=== PATIENT | male | born 1955 | race Caucasian/White ===

== ENCOUNTER 2018-03-12 09:39 | Outpatient (CLI) | payer BC ==
--- NOTE | 2018-03-12 11:14 | ULT ---
LEFT BREAST ULTRASOUND: Date: 03/12/18 HISTORY: 63-year-old male with history of palpable finding in the subareolar aspect of the left breast. FINDINGS: There are some flame-shaped hypoechogenicity changes in the subareolar region of the left breast, as well as some minimal asymmetric appearing glandular tissue. No evidence for focal mass or architectur al distortion. Mammographic findings and breast ultrasound findings are consistent with that of asymmetric left-side d gynecomastia without evidence for focal malignancy. Continued follow-up physical examination is recommended. If there is any new palpable finding or sign ificant change in the palpable findings in the left breast, follow-up left-sided diagnostic mammogram and left breast ultrasound examination is recommended. IMPRESSION: BIRADS 2: Benign Finding(s) Evidence for gynecomastia. If the patient develops a new focal palpable finding or change in the palp able findings, follow-up additional imaging at that point in time, including left unilateral diagnost ic mammogram and left breast ultrasound, would be recommended. POS: OFF
== END 2018-03-12 09:40 | disposition home or self-care (01) ==
LOC: BICMAMMO 09:39
PROVIDERS: ATTEND Surgery
DX: N63.20 Unspecified lump in the left breast, unspecified quadrant (principal); N62 Hypertrophy of breast
CPT/HCPCS: 77066; G0279

== ENCOUNTER 2021-07-23 13:24 | Outpatient (CLI) | payer MEDICARE, BC ==
[2021-07-24 00:50] LABS: SARS-CoV-2 PCR by NAA Not Detected (NotDetected)
== END 2021-07-23 13:25 | disposition home or self-care (01) ==
LOC: LABBT 13:24
PROVIDERS: ATTEND Surgery
DX: Z01.812 Encounter for preprocedural laboratory examination (principal); C86.5 Angioimmunoblastic T-cell lymphoma; Z20.822 Contact with and (suspected) exposure to COVID-19
CPT/HCPCS: U0003; U0005

== ENCOUNTER 2021-08-04 12:06 | Outpatient (CLI) | payer MEDICARE, BC ==
[2021-08-04 22:06] LABS: SARS-CoV-2 PCR by NAA Not Detected (NotDetected)
== END 2021-08-04 12:07 | disposition home or self-care (01) ==
LOC: LABBT 12:06
PROVIDERS: ATTEND Surgery
DX: C86.5 Angioimmunoblastic T-cell lymphoma (principal); Z20.822 Contact with and (suspected) exposure to COVID-19
CPT/HCPCS: U0003; U0005

== ENCOUNTER 2021-08-09 11:22 | Day surgery (SDC) | payer MEDICARE, BC ==
[2021-08-02 11:21] VITALS: BMI 28.5
[2021-08-09] MEDS ORDERED: Xylocaine 1% w/ Epi 1:100K 10 ML VIAL ONE (12:51)
[2021-08-09] MEDS ORDERED: Bupivacaine 0.25% HCL 30 ML VIAL ONE (12:51)
[2021-08-09] MEDS ORDERED: Midazolam HCl 2 mg/2 ml Vial ONE (13:33)
[2021-08-09] MEDS ORDERED: Fentanyl 250 MCG/5 ML VIAL ONE (13:33)
[2021-08-09] MEDS ORDERED: PROPOFOL 20 ML ONE (13:34)
[2021-08-09] MEDS ORDERED: Levofloxacin 500 mg/D5W 100 ml Premix Bag ONE (13:49)
[2021-08-09] MEDS ORDERED: PROPOFOL 200 MG/20 ML VIAL ONE (14:05)
[2021-08-09] MEDS ORDERED: Lidocaine 1% PF 5 ML VIAL ONE (14:05)
[2021-08-09] MEDS ORDERED: PHENYLEPHRINE-NS 100 MCG/ML 10 ML SYRINGE ONE (14:05)
== END 2021-08-09 16:19 | disposition home or self-care (01) ==
LOC: SDC 11:22
PROVIDERS: ATTEND Surgery
PROC: 0JH60WZ Insertion of Totally Implantable Vascular Access Device into Chest Subcutaneous Tissue and Fascia, Open Approach (ICD-10-PCS; principal; 2021-08-09)
PROC: 02HV33Z Insertion of Infusion Device into Superior Vena Cava, Percutaneous Approach (ICD-10-PCS; 2021-08-09)
DX: C85.90 Non-Hodgkin lymphoma, unspecified, unspecified site (principal); K21.9 Gastro-esophageal reflux disease without esophagitis; I25.10 Atherosclerotic heart disease of native coronary artery without angina pectoris; Z87.891 Personal history of nicotine dependence; Z79.52 Long term (current) use of systemic steroids; Z79.899 Other long term (current) drug therapy; Z88.0 Allergy status to penicillin; Z88.2 Allergy status to sulfonamides
CPT/HCPCS: 71045; 76000; J1642; J1956; J2250; J2704; J3010; S0020